=== PATIENT | male | born 2005 | race Caucasian/White ===

== ENCOUNTER 2025-06-19 16:53 | Emergency (ER) | payer SELFPAY ==
[~2025-06-19] VITALS: Ht 177.8 cm; Wt 91.0 kg
[2025-06-19 16:59] VITALS: O2SAT 99
[2025-06-19] MEDS: LIDOCAINE 5% PATCH TOP SCH (20:56)
[2025-06-19] MEDS: CYCLOBENZAPRINE 10MG TABLET PO ONE (20:56)
[2025-06-19] MEDS: KETOROLAC 30MG/ML VIAL IM ONE (20:56)
[2025-06-19 21:15] LABS: BASOPHILS % 0.1 % (0.0-2.0); EOSINOPHILS % 3.1 % (0.0-5.0); HEMATOCRIT. 44.1 % (42.0-52.0); HEMOGLOBIN. 14.4 g/dL (14.0-18.0); LYMPHOCYTES % 40.6 % (20.0-50.0); MEAN PLATELET VOLUME 7.8 fl (7.4-10.4); MONOCYTES % 8.0 % (2.0-8.0); NEUTROPHILS % 48.2 % (40.0-76.0); PLATELET 275 x1000/uL (130-400); RED BLOOD CELL COUNT 5.32 mill/uL (4.7-6.1); RED CELL DISTRIBUTION WIDTH 14.1 % (11.6-14.6)
[2025-06-19 21:28] LABS: CREATININE 0.7 mg/dL (0.6-1.3); UREA NITROGEN BLOOD 10 mg/dL (9-23)
[2025-06-19 21:30] LABS: ASPARTATE AMINOTRANSFERASE 28 IU/L (<34)
[2025-06-19 21:31] LABS: BILIRUBIN TOTAL 0.3 mg/dL (0.1-1.0); PROTEIN TOTAL 7.9 g/dL (6.0-8.3)
[2025-06-19] MEDS ORDERED: LIDO700A30 TP (22:39)
[2025-06-19] MEDS ORDERED: IBUP-2028 MT (22:39)
[2025-06-19] MEDS ORDERED: TOPUD MT (22:39)
[2025-06-19] MEDS: HYDROCODONE/ACETAMINOPHEN 5/325MG TABLET PO ONE (23:16)
[2025-06-19 23:19] VITALS: BP 122/62; PULSE 69; RESP 18; TEMP 36.9; O2SAT 99
== END 2025-06-19 23:20 | disposition home or self-care (01) ==
LOC: ER 16:53
DX: S39.012A Strain of muscle, fascia and tendon of lower back, initial encounter (principal); F84.0 Autistic disorder; I21.09 ST elevation (STEMI) myocardial infarction involving other coronary artery of anterior wall; W01.0XXA Fall on same level from slipping, tripping and stumbling without subsequent striking against object, initial encounter; Y93.01 Activity, walking, marching and hiking; Y92.89 Other specified places as the place of occurrence of the external cause; Y99.8 Other external cause status
CPT/HCPCS: 99285; 80053; 85025; 36415; 72100; 93005; 96372; J1885